=== PATIENT | female | born 1995 | race Hispanic/Latino ===

== ENCOUNTER → 2020-04-30 15:22 | Outpatient (CLI) | payer OTHER, SELFPAY ==
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
== END ==
PROVIDERS: PCP Physician Assistant; Visit Provider Physician Assistant
DX: M25.531 Pain in right wrist (principal); M54.2 Cervicalgia; M53.82 Other specified dorsopathies, cervical region
CPT/HCPCS: 72050; 73090; 73130

== ENCOUNTER → 2021-03-12 15:31 | Outpatient (CLI) | payer OTHER, SELFPAY ==
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
== END ==
PROVIDERS: PCP Physician Assistant; Visit Provider Nurse Practitioner
DX: T83.32XA Displacement of intrauterine contraceptive device, initial encounter (principal)
CPT/HCPCS: 76856

== ENCOUNTER 2021-04-17 23:54 | Emergency (ER) | payer OTHER, SELFPAY ==
--- NOTE | ~2021-04-17 | XR_ITS ---
EXAMINATION: XR chest 1V portable DATE: 04/18/2021 00:29 INDICATION: Cough. TECHNIQUE: A single frontal view of the chest was obtained. COMPARISON: Chest 2 views 11/11/2012, CT abdomen and pelvis 05/06/2017 FINDINGS: The chest demonstrates clear lungs without pneumonia, pleural effusion, or pneumothorax. Th e heart size is normal. IMPRESSION: 1. No acute cardiopulmonary disease. Reviewed, dictated and finalized at location A.
[2021-04-17 23:59] VITALS: BP 133/86; PULSE 106; RESP 18; TEMP 36.8; O2SAT 100
--- NOTE | 2021-04-18 00:46 | ECG_ITS ---
Measurements Intervals [place] Rate: 99 P: 22 IA: 146 QRS: 38 QRSD: 100 T: 17 QT: 341 QTc: 439 Interpretive Statements SINUS RHYTHM NORMAL ECG Electronically Signed On 04-18-2021 6:48:36 CDT by Manjit Casillas D.O.
[2021-04-18 01:01] LABS: Basophils Percent Auto 0.3 % (0.2-1.2); Eosinophils Absolute Auto 0.1 K/mm3 (0-0.3); Eosinophils Percent Auto 1.7 % (0-4.4); Hematocrit 42.1 % (37.0-47.0); Hemoglobin 13.8 g/dL (12.0-15.0); Immature Granulocyte Absolute 0.01 K/mm3 (0.00-0.031); Immature Granulocyte Percent A 0.3 % (0-0.5); Lymphocytes Absolute Auto 0.89 K/mm3 (0.9-3.2); Lymphocytes Percent Auto 30.5 % (18.3-44.2); Mean Corpuscular HGB Conc 32.8 g/dl (32-36); Mean Corpuscular Hemoglobin 28.8 pg (26-34); Mean Corpuscular Volume 87.9 fl (80-100); Mean Platelet Volume 10.5 fl (7.4-10.4); Monocytes Absolute Auto 0.2 K/mm3 (0.1-0.6); Monocytes Percent Auto 6.8 % (2.6-8.5); Neutrophils Absolute Auto 1.8 K/mm3 (1.3-6.7); Neutrophils Percent Auto 60.4 % (45.5-73.1); Platelet Count Result 160 k/mm3 (150-375); Red Blood Count 4.79 M/mm3 (4.2-5.4); Red Cell Distribution Width 13.2 % (11.5-14.5); White Blood Count 2.9 K/mm3 (4.5-10.0)
[2021-04-18 01:11] LABS: Alanine Aminotransferase 36 U/L (4-35); Albumin Level 3.8 g/dL (3.5-5.1); Alkaline Phosphatase 54 U/L (38-126); Anion Gap 5 mmol/L (8-16); Aspartate Amino Transferase 29 U/L (14-36); Bilirubin,Total 0.3 mg/dL (0.2-1.3); Blood Urea Nitrogen 7 mg/dL (7-17); Calcium 8.7 mg/dL (8.4-10.2); Carbon Dioxide 29 mmol/L (22-30); Chloride 103 mmol/L (98-107); Estimated CRCL calculation 173 ml/min; Estimated Glomerular Filt Rate > 60; Glucose 205 mg/dL (65-105); Potassium 4.3 mmol/L (3.4-5.0); Sodium 137 mmol/L (137-145)
[2021-04-18 01:22] LABS: Troponin I < 0.012 ng/mL (0.000-0.034)
--- NOTE | 2021-04-18 01:28 | ED.GENADULT ---
HPI - General Adult General Chief complaint: Unspecified Stated complaint: Cough, REINOSO, no sense of smell/taste after covid vac Time Seen by Provider: 04/18/21 00:00 Source: RN notes reviewed History of Present Illness HPI narrative: Patient presents emergency department from home for upper respiratory infection symptoms. Patient states that on 04/15/2021 she received her first Pfizer Covid vaccination she states that the next day she developed a cough that is nonproductive she notes that cough is now resolved she states that she has had a low-grade fever up to 100 for the past 2 days as well she states she has some mild rhinorrhea and today lost her sense of smell and taste patient was concerned about possible Covid and came to the emergency department for further evaluation she she has taken Tylenol today but denies any ibuprofen states she has a mild pulling in her right upper chest at this time she denies any current shortness of breath or cough denies any abdominal pain nausea vomiting Related Data Home Medications Medication Instructions Recorded Confirmed metformin mg 04/18/21 Allergies Allergy/AdvReac Type Severity Reaction Status Date / Time No Known Allergies Allergy Unknown Verified 04/18/21 00:39 Review of Systems Review of Systems: Narrative: Gen.: Reports low-grade fever denies chills Eyes: Denies eye pain or visual change ENT: Reports congestion and loss of taste and smell Respiratory: Denies shortness of breath reports cough CV: Reports right upper chest pulling GI: Denies abdominal pain nausea, emesis or diarrhea Musculoskeletal: Denies back pain or muscle pain Neuro: Denies numbness, tingling, weakness or focal weakness Skin: Denies rash Except as documented, all other systems reviewed and negative [facility] Past Medical History Medical History (Updated 04/18/21 @ 01:34 by Francisco Bowens DO) Diabetes mellitus Family History Family History (Updated 09/23/16 @ 15:00 by DOCTOR UNKNOWN) Other Diabetes mellitus Hypertension Social History Social History Smoking status: Never smoker Alcohol intake: never Exam Narrative: Exam Narrative: APPEARANCE: No acute distress, nontoxic, resting in bed EYES: EOMI HEENT: Normocephalic, atraumatic, OMM RESPIRATORY: No respiratory distress Clear to auscultation bilaterally with no rhonchi wheezing or rales. CARDIOVASCULAR: Regular rate and rhythm without murmurs rubs or gallops. Chest: Tender palpation of the right anterior superior chest wall no overlying swelling or ecchymosis pain with increased inspiration ABDOMINAL: Soft, nontender, nondistended, no rebound or guarding MUSCULOSKELETAl: Moves all extremities. No clubbing, cyanosis or edema. NEURO: Awake and alert. Following commands, speech normal, no focal deficits SKIN:: Warm, dry. No rashes lesions or abrasions PSYCHIATRIC: Normal affect/mood, Course Course Emergency Course: Discussed with patient will test for Covid at this time discussed self-isolation Discussed with patient results of workup and diagnosis. Discussed need for follow-up with primary care, proper use of medication, and reasons to return to the emergency department. Patient understands and agrees to current treatment plan Vital Signs Vital signs: Vital Signs Temperature 98.3 F 04/17/21 23:59 Pulse Rate 106 H 04/17/21 23:59 Respiratory Rate 18 04/17/21 23:59 Blood Pressure 133/86 04/17/21 23:59 Pulse Oximetry 100 04/17/21 23:59 Temperature 98.3 F 04/17/21 23:59 Pulse Rate 106 H 04/17/21 23:59 Respiratory Rate 18 04/17/21 23:59 Blood Pressure 133/86 04/17/21 23:59 Pulse Oximetry 100 04/17/21 23:59 Medical Decision Making MDM Narrative Medical decision making narrative: Patient's EKGs and labs are without significant high risk changes. Cardiac risk factors reviewed. Patient is felt likely low risk for ACS and reasonable for further ri
[2021-04-18] MEDS: IBUPROFEN 600 MG TABLET PO (02:10)
[2021-04-18 02:11] VITALS: BP 131/81; PULSE 95; RESP 16; O2SAT 97
[2021-04-18 21:20] LABS: SARS-CoV-2 RNA PCR Positive
== END 2021-04-18 02:12 | disposition home or self-care (01) ==
PROVIDERS: Emergency Provider Emergency Medicine; PCP Physician Assistant
DX: U07.1 COVID-19 (principal); R07.89 Other chest pain; E11.9 Type 2 diabetes mellitus without complications; Z79.84 Long term (current) use of oral hypoglycemic drugs
CPT/HCPCS: 36415; 71045; 80053; 84484; 85025; 93005; 99284; A9270; C9803; U0003; U0005

== ENCOUNTER 2021-11-17 08:00 | Outpatient (RCR) | payer OTHER, SELFPAY ==
[2021-10-13 08:06] VITALS: BMI 40.5
[2021-10-13 08:24] VITALS: BMI 40.5
[2021-11-17 08:05] VITALS: BMI 40.4
[2021-11-17 08:08] VITALS: BMI 40.4
== END 2022-01-04 09:22 | disposition home or self-care (01) ==
LOC: ANHDMC 08:00
PROVIDERS: PCP Physician Assistant; Visit Provider Internal Medicine Endocrinology, Diabetes & Metabolism
DX: E11.65 Type 2 diabetes mellitus with hyperglycemia (principal); Z71.3 Dietary counseling and surveillance; Z71.89 Other specified counseling
CPT/HCPCS: 97802; 97803; G0108

== ENCOUNTER 2021-12-22 12:01 | Emergency (ER) | payer OTHER, SELFPAY ==
[2021-12-22] VITALS (21 sets, daily range): BP systolic 111–134; BP diastolic 56–92; PULSE 65–91; RESP 13–23; TEMP 36.4; O2SAT 98–100
[2021-12-22 12:11] LABS: Glucose Point of Care 380 mg/dl (65-105)
--- NOTE | 2021-12-22 12:22 | PC.NURSE ---
EDP at bedside
[2021-12-22 12:27] LABS: Basophils Absolute Auto 0.1 K/mm3 (0.0-0.1); Basophils Percent Auto 0.6 % (0.2-1.2); Eosinophils Absolute Auto 0.2 K/mm3 (0-0.3); Eosinophils Percent Auto 2.1 % (0-4.4); Hematocrit 43.5 % (37.0-47.0); Hemoglobin 14.9 g/dL (12.0-15.0); Immature Granulocyte Absolute 0.05 K/mm3 (0.00-0.031); Immature Granulocyte Percent A 0.6 % (0-0.5); Lymphocytes Absolute Auto 2.25 K/mm3 (0.9-3.2); Lymphocytes Percent Auto 27.4 % (18.3-44.2); Mean Corpuscular HGB Conc 34.3 g/dl (32-36); Mean Corpuscular Hemoglobin 29.9 pg (26-34); Mean Corpuscular Volume 87.3 fl (80-100); Mean Platelet Volume 11.5 fl (7.4-10.4); Monocytes Absolute Auto 0.4 K/mm3 (0.1-0.6); Monocytes Percent Auto 4.6 % (2.6-8.5); Neutrophils Absolute Auto 5.3 K/mm3 (1.3-6.7); Neutrophils Percent Auto 64.7 % (45.5-73.1); Platelet Count Result 196 k/mm3 (150-375); Red Blood Count 4.98 M/mm3 (4.2-5.4); Red Cell Distribution Width 12.5 % (11.5-14.5); White Blood Count 8.2 K/mm3 (4.5-10.0)
[2021-12-22 12:35] LABS: Alanine Aminotransferase 88 U/L (4-35); Albumin Level 4.3 g/dL (3.5-5.1); Alkaline Phosphatase 71 U/L (38-126); Anion Gap 7 mmol/L (8-16); Aspartate Amino Transferase 66 U/L (14-36); Bilirubin,Total 0.6 mg/dL (0.2-1.3); Blood Urea Nitrogen 11 mg/dL (7-17); Carbon Dioxide 25 mmol/L (22-30); Chloride 99 mmol/L (98-107); Estimated CRCL calculation 160 ml/min; Estimated Glomerular Filt Rate > 60; Glucose 359 mg/dL (65-110); Potassium 4.2 mmol/L (3.4-5.0); Sodium 131 mmol/L (137-145)
[2021-12-22 12:36] LABS: Add Urine Microscopic? YES; Appearance Urine Clear (Clear); Bilirubin Urine Negative (Negative); Blood Urine Negative (Negative); Color Urine Straw (Yellow); Glucose Urine UA 3+ mg/dL (Negative); Ketones Urine Trace mg/dL (Negative); Leukocyte Esterase Ur Negative LEU/UL (Negative); Nitrate Urine Negative (Negative); Protein Urine Negative (Negative); RBC Urine 0-2 /hpf (0-2); Specific Grav Ur 1.024 (1.001-1.035); Squamous Epithelial Cell Urine Rare /hpf (Few); Urobilinogen Urine Negative mg/dL (<2.0); WBC Urine 0-3 /hpf
[2021-12-22] MEDS: SODIUM CHLORIDE 0.9% IV 1,000 ML 999 ML IV CONT (12:37)
[2021-12-22 13:13] LABS: Beta-Hydroxybutyrate/Acetoacetate 0.17 mmol/L (0.02-0.27)
--- NOTE | 2021-12-22 14:30 | ED.GENADULT ---
HPI - General Adult General Chief complaint: Recheck/Abnormal Lab/Rx Stated complaint: Hyperglycemia Time Seen by Provider: 12/22/21 12:18 Source: patient Mode of arrival: ambulatory Limitations: no limitations History of Present Illness HPI narrative: Pt is a26 y/o female, PMHx of NIDDM, presents to ED with increased FSBS at home for the past couple of days, today reading 500. She recently stopped Trulicity secondary to negative side effects and has continued her Metformin 500 mg at her regular dose without titration. She has no associated symptoms at this time and she denies recent illness or chance of Onset (ago): day(s) (3) Relieving factors: none Exacerbating factors: none Associated symptoms: denies other symptoms Treatments prior to arrival: none Related Data Home Medications Medication Instructions Recorded Confirmed albuterol sulfate INHALATION 12/22/21 ergocalciferol (vitamin D2) 1,250 mcg WEEKLY 12/22/21 12/22/21 metformin 500 mg PO DAILY 12/22/21 12/22/21 spironolactone 100 mg PO DAILY 12/22/21 Allergies Allergy/AdvReac Type Severity Reaction Status Date / Time No Known Allergies Allergy Unknown Verified 04/18/21 00:39 Review of Systems Review of Systems: All systems reviewed & are unremarkable except as noted in HPI and below PMFSH Past Medical History Medical History Diabetes mellitus Family History Family History (Updated 09/23/16 @ 15:00 by DOCTOR UNKNOWN) Other Diabetes mellitus Hypertension Social History Social History Smoking status: Never smoker Alcohol intake: never Spiritual care concerns: No Exam Const: General: no acute distress and alert Orientation/consciousness: patient oriented x3 HENMT: Head: normal to inspection Eyes: Conjunctivae: conjunctivae normal Pupils: Equal, round and reactive pupils present EOM: EOMs intact bilaterally Neck: Neck: normal visual inspection Chest: Chest palpation & inspection: normal inspection of the chest Resp: Effort & Inspection: normal respiratory effort Auscultation: clear to auscultation bilaterally Cardio: Rate: regular rate Rhythm: regular rhythm GI: GI Palp: Yes Soft to palpation Percussion: Yes normal to percussion Auscultation: normal bowel sounds : General: Yes no CVA tenderness Back/Spine/Pelvis: Back: no CVA tenderness Skin: General skin exam: normal color Rashes: no rashes Neuro: General: patient oriented x3, moves all extremities and no meningeal signs Extrem: General: normal to inspection Psych: Mental Status: mental status grossly normal Affect: normal affect Attitude: cooperative Course Course Emergency Course: Pt is not ketotic, she has completed IVF and her FSBS is improving. Plan to discharge home, increasing her metformin to 1000 mg daily until she FU with her heater furnace and further medication adjustments are made, calling today for an appointment as soon as possible. Pt is agreeable with plan. Vital Signs Vital signs: Vital Signs Temperature 36.4 C 12/22/21 12:06 Pulse Rate 76 12/22/21 12:06 Respiratory Rate 18 12/22/21 12:06 Blood Pressure 134/92 H 12/22/21 12:06 Pulse Oximetry 99 12/22/21 12:06 Temperature 36.4 C 12/22/21 12:06 Pulse Rate 87 12/22/21 14:14 Respiratory Rate 20 12/22/21 14:14 Blood Pressure 111/56 L 12/22/21 13:31 Pulse Oximetry 100 12/22/21 14:14 Medical Decision Making MDM Narrative Medical decision making narrative: hyperglycemia, DM Differential Diagnosis Differential Diagnosis: hyperglycemia, DM Vital Signs Vital Signs: Vital Signs Temperature 36.4 C 12/22/21 12:06 Pulse Rate 76 12/22/21 12:06 Respiratory Rate 18 12/22/21 12:06 Blood Pressure 134/92 H 12/22/21 12:06 Pulse Oximetry 99 12/22/21 12:06 Temperature 36.4 C 12/22/21 12:06 Pulse Rate 87 12/22
--- NOTE | 2021-12-22 14:52 | PC.NURSE ---
Bedside glucose rechecked with result of 233. ERP made aware.
[2021-12-22 14:53] LABS: Glucose Point of Care 233 mg/dl (65-105)
== END 2021-12-22 15:28 | disposition home or self-care (01) ==
PROVIDERS: Emergency Medicine; Emergency Provider Nurse Practitioner Family; PCP Physician Assistant
DX: E11.65 Type 2 diabetes mellitus with hyperglycemia (principal); Z79.84 Long term (current) use of oral hypoglycemic drugs
CPT/HCPCS: 36415; 80053; 81001; 81025; 82010; 82948; 85025; 96360; 99283; J7030

== ENCOUNTER 2022-01-26 06:14 | Outpatient (RCR) | payer OTHER, SELFPAY | END 2022-04-13 10:00 | disposition home or self-care (01) | LOC: ANHDMC 06:14 | PROVIDERS: PCP Physician Assistant; Visit Provider Internal Medicine Endocrinology, Diabetes & Metabolism | DX: E11.65 Type 2 diabetes mellitus with hyperglycemia (principal) | CPT/HCPCS: 99199 ==

== ENCOUNTER 2022-12-01 08:52 | Emergency (ER) | payer OTHER, SELFPAY ==
[2022-12-01 08:58] VITALS: BP 145/92; PULSE 91; RESP 16; TEMP 35.9; O2SAT 99
--- NOTE | 2022-12-01 08:58 | ED.URI ---
HPI - URI/Sore Throat General Chief Complaint: Upper Respiratory Infection Stated Complaint: Cough/Eye Problem Source: patient and RN notes reviewed History of Present Illness HPI Narrative: 27 yo F presents to urgent care with multiple medical complaints. Pt reports her symptoms starting last involving congestion and postnasal drip. Pt then started to develop a sore throat which has improved and is resolved by hot foods. Pt reports intermittent nausea, left ear fullness, intermittent lightheadedness, and cough. Pt denies any vomiting, diarrhea, chest pain, or SOB. Pt has been taking cough drops, Dayquil, and an allergy pill. Related Data Home Medications Medication Instructions Recorded Confirmed metformin 500 mg tablet,extended 500 mg PO DAILY 12/22/21 12/01/22 release 24 hr spironolactone 100 mg tablet 100 mg PO DAILY 12/22/21 12/01/22 Allergies Allergy/AdvReac Type Severity Reaction Status Date / Time No Known Allergies Allergy Unknown Verified 12/01/22 09:10 Review of Systems Review of Systems: CONSTITUTIONAL: Denies fever, chills EYES: REports bilateral eye discharge this morning ENT: Reports sore throat and left ear fullness CARDIOVASCULAR: Denies chest pain, palpitations, or edema. RESPIRATORY: Denies cough or dyspnea. GASTROINTESTINAL: Denies abdominal pain, vomiting, or diarrhea. Admits to nausea. GENITOURINARY: Denies dysuria or hematuria. SKIN: Denies rash or itching. MUSCULOSKELETAL: Denies back pain, joint pain, or myalgia. NEUROLOGIC: Reports intermittent lightheadedness. [facility] Past Medical History Medical History Diabetes mellitus Family History Family History (Updated 09/23/16 @ 15:00 by DOCTOR UNKNOWN) Other Diabetes mellitus Hypertension Social History Social History Smoking status: Never smoker Alcohol intake: never Spiritual care concerns: No Comments At the time of my signature, I reviewed and agree with the nursing past medical, surgical, social, and family history. There is no relevant family history pertinent to the patient complaint. Exam Narrative: GENERAL: This is a well-nourished, well-developed patient, in no apparent distress. HEAD: normocephalic, atraumatic. EYES: PERRL. Sclera clear/white. Vision is grossly intact. Bilateral lower conjunctivae injected. No significant discharge noted. EARS: External ears normal, auditory canals clear and without drainage, TMs normal without perforation. Hearing grossly intact. NOSE: congested and rhinorrhea. THROAT: Mucous membranes moist, posterior pharynx clear. NECK: Mild lymphadenopathy CARDIOVASCULAR: Regular rate RESPIRATORY: Clear to auscultation. Breath sounds equal bilaterally. No wheezes, rales, or rhonchi. SKIN: warm, intact with no suspicious lesions or rash, good texture and turgor. NEURO: awake, alert, and oriented to person, place and time. There were no obvious focal neurologic abnormalities. Course Course Level of Care: Express Care Visit Vital Signs Vital signs: Vital Signs Temperature 96.6 F L 12/01/22 08:58 Pulse Rate 91 12/01/22 08:58 Respiratory Rate 16 12/01/22 08:58 Blood Pressure 145/92 H 12/01/22 08:58 Pulse Oximetry 99 12/01/22 08:58 Oxygen Delivery Room Air 12/01/22 08:58 Temperature 96.6 F L 12/01/22 08:58 Pulse Rate 91 12/01/22 08:58 Respiratory Rate 16 12/01/22 08:58 Blood Pressure 145/92 H 12/01/22 08:58 Pulse Oximetry 99 12/01/22 08:58 Oxygen Delivery Room Air 12/01/22 08:58 Reviewed. MDM - URI/Sore Throat MDM Narrative Medical decision making narrative: Viral illness may last between 7-21 days; antibiotics do not cure viral illness and are NOT recommended at this time. Recommend antihistamine such as Benadryl at night time and Zyrtec or [place] during the day Cough syrup may cause drowsiness; avoid driving
== END 2022-12-01 09:31 | disposition home or self-care (01) ==
PROVIDERS: Emergency Provider Nurse Practitioner Family; PCP Physician Assistant
DX: B34.9 Viral infection, unspecified (principal); R42 Dizziness and giddiness; H10.33 Unspecified acute conjunctivitis, bilateral; E11.9 Type 2 diabetes mellitus without complications; Z79.84 Long term (current) use of oral hypoglycemic drugs
CPT/HCPCS: 99213; G0463

== ENCOUNTER 2023-08-08 09:30 | Emergency (ER) | payer OTHER, SELFPAY ==
[2023-08-08 09:38] VITALS: BP 131/79; PULSE 83; RESP 18; TEMP 35.7; O2SAT 99
[2023-08-08 09:44] LABS: Glucose Point of Care 408 mg/dl (65-105)
[2023-08-08 10:27] VITALS: BP 125/99; PULSE 87; RESP 18; TEMP 36.6; O2SAT 100
[2023-08-08] MEDS: SODIUM CHLORIDE 0.9% IV 2,000 ML 999 ML IV CONT (11:05)
[2023-08-08] MEDS: ONDANSETRON INJ 4 MG/2 ML VIAL IV PUSH (11:06)
[2023-08-08 11:08] VITALS: BP 139/95; PULSE 73; RESP 20; O2SAT 97
[2023-08-08 11:08] LABS: Basophils Absolute Auto 0.1 K/mm3 (0.0-0.1); Basophils Percent Auto 0.8 % (0.2-1.2); Eosinophils Absolute Auto 0.1 K/mm3 (0-0.3); Eosinophils Percent Auto 2.2 % (0-4.4); Hematocrit 44.8 % (37.0-47.0); Hemoglobin 15.3 g/dL (12.0-15.0); Immature Granulocyte Absolute 0.03 K/mm3 (0.00-0.031); Immature Granulocyte Percent A 0.5 % (0-0.5); Lymphocytes Absolute Auto 2.56 K/mm3 (0.9-3.2); Lymphocytes Percent Auto 40.6 % (18.3-44.2); Mean Corpuscular HGB Conc 34.2 g/dl (32-36); Mean Corpuscular Hemoglobin 30.3 pg (26-34); Mean Corpuscular Volume 88.7 fl (80-100); Mean Platelet Volume 11.9 fl (7.4-10.4); Monocytes Absolute Auto 0.3 K/mm3 (0.1-0.6); Monocytes Percent Auto 4.4 % (2.6-8.5); Neutrophils Absolute Auto 3.2 K/mm3 (1.3-6.7); Neutrophils Percent Auto 51.5 % (45.5-73.1); Platelet Count Result 196 k/mm3 (150-375); Red Blood Count 5.05 M/mm3 (4.2-5.4); Red Cell Distribution Width 12.4 % (11.5-14.5); White Blood Count 6.3 K/mm3 (4.5-10.0)
[2023-08-08 11:34] LABS: Alanine Aminotransferase 62 U/L (6-35); Albumin Level 4.1 g/dL (3.5-5.1); Alkaline Phosphatase 62 U/L (38-126); Anion Gap 6 mmol/L (8-16); Aspartate Amino Transferase 36 U/L (14-36); Bilirubin,Total 0.6 mg/dL (0.2-1.3); Blood Urea Nitrogen 10 mg/dL (7-17); Calcium 9.2 mg/dL (8.4-10.2); Carbon Dioxide 28 mmol/L (22-30); Chloride 99 mmol/L (98-107); Estimated CRCL calculation 159 ml/min; Estimated Glomerular Filt Rate > 60; Glucose 369 mg/dL (65-110); Potassium 4.3 mmol/L (3.4-5.0); Sodium 133 mmol/L (137-145)
[2023-08-08 11:38] LABS: Beta-Hydroxybutyrate/Acetoacetate 0.11 mmol/L (0.02-0.27)
--- NOTE | 2023-08-08 12:43 | ED.RECABL ---
HPI - Recheck/Abnormal Lab/Rx General Chief Complaint: Recheck/Abnormal Lab/Rx Stated Complaint: hyperglycemic Time Seen by Provider: 08/08/23 10:08 History of Present Illness HPI narrative: This is a 28F with diabetes currently managed with Metformin, who presents to the ED with elevated blood sugar. The patient states her blood sugar typically runs in the 200s. Yesterday it was elevated to the 300s. Today it reached the mid 400s. She complains of some abdominal discomfort and nausea, though denies vomiting, fevers, dysuria, chest pain or loss of consciousness. Related Data Home Medications Medication Instructions Recorded Confirmed metformin 500 mg tablet,extended 500 mg PO DAILY 12/22/21 12/01/22 release 24 hr spironolactone 100 mg tablet 100 mg PO DAILY 12/22/21 12/01/22 Allergies Allergy/AdvReac Type Severity Reaction Status Date / Time No Known Allergies Allergy Unknown Verified 08/08/23 10:04 Review of Systems Review of Systems: CONSTITUTIONAL: Denies fever, chills, or sweats. CARDIOVASCULAR: Denies chest pain, palpitations, or edema. RESPIRATORY: Denies cough or dyspnea. GASTROINTESTINAL: Mild abdominal discomfort and nausea, Denies vomiting, or diarrhea. GENITOURINARY: Denies dysuria or hematuria. SKIN: Denies rash or itching. MUSCULOSKELETAL: Denies back pain, joint pain, or myalgia. NEUROLOGIC: Denies headache, numbness, dizziness, or weakness. PSYCHIATRIC: Denies anxiety or depression. PMFSH Past Medical History Medical History (Updated 08/09/23 @ 11:55 by Horacio Michelle MD) Diabetes mellitus Symptomatic cholelithiasis Family History Family History Other Diabetes mellitus Hypertension Social History Social History (Updated 08/09/23 @ 11:51 by Horacio Michelle MD) Smoking status: Never smoker Alcohol intake: never Substance use: never Spiritual care concerns: No Exam Narrative: GENERAL: Well-developed, well-nourished, and in no acute distress. HEAD: Normocephalic, atraumatic. EYES: PERRLA and EOMI. ENT: Nares clear, no rhinorrhea or epistaxis. Mucous membranes moist. Oropharynx without tonsillar hypertrophy exudate or other lesions. CHEST: Clear to auscultation. No respiratory distress. No wheezes rales or rhonchi HEART: Regular rate and rhythm. No murmur heard. Normal peripheral pulses. ABDOMEN: Soft, mild generalized tenderness to palpation without rebound or guarding, nondistended, normal active bowel sounds. EXTREMITIES: Normal range of motion. No edema. SKIN: Warm, dry, no rash. NEURO: Alert and oriented x3. Moving all 4 limbs purposefully. PSYCH: Normal mood and affect. Course Course Emergency Course: 12:44 - Repeat glucose after IV fluids improved to 247. Chemistries not concerning for DKA. Will discharge. I advised the patient to follow-up with her primary care doctor. Discussed return and emergency precautions including signs/symptoms of DKA. The patient voiced understanding and is comfortable with the plan. All questions answered to her satisfaction Vital Signs Vital signs: Vital Signs Temperature 96.2 F L 08/08/23 09:38 Pulse Rate 83 08/08/23 09:38 Respiratory Rate 18 08/08/23 09:38 Blood Pressure 131/79 08/08/23 09:38 Pulse Oximetry 99 08/08/23 09:38 Oxygen Delivery Room Air 08/08/23 09:38 Temperature 97.8 F 08/08/23 10:27 Pulse Rate 76 08/08/23 12:52 Respiratory Rate 20 08/08/23 12:52 Blood Pressure 112/73 08/08/23 12:52 Pulse Oximetry 99 08/08/23 12:52 Oxygen Delivery Room Air 08/08/23 09:38 MDM - Recheck/Abnormal Lab/Rx MDM Narrative Medical decision making narrative: Plan: labs, test, IV fluids, antiemetics, reassess Differential Diagnosis Differential diagnosis: Likely other (DKA, hyperglycemia, metabolic abnormality, other) Lab Data 08/08/23 11:03 08/08/23 11:03 Labs: Lab
[2023-08-08 12:44] LABS: Glucose Point of Care 247 mg/dl (65-105)
[2023-08-08 12:52] VITALS: BP 112/73; PULSE 76; RESP 20; O2SAT 99
== END 2023-08-08 12:55 | disposition home or self-care (01) ==
PROVIDERS: Emergency Provider Preventive Medicine Aerospace Medicine; PCP Physician Assistant
DX: E11.65 Type 2 diabetes mellitus with hyperglycemia (principal); Z79.84 Long term (current) use of oral hypoglycemic drugs
CPT/HCPCS: 36415; 80053; 81025; 82010; 82948; 85025; 96361; 96374; 99284; J2405; J7030

== ENCOUNTER 2023-10-20 09:30 | Emergency (ER) | payer OTHER, SELFPAY ==
--- NOTE | ~2023-10-20 | US_ITS ---
US venous doppler [facility] DATE: 10/20/2023 11:30 INDICATION: Bilateral calf pain, tightness, spasms TECHNIQUE: Real-time and color flow imaging and Doppler analysis of the veins of the lower extremitie s COMPARISON: None FINDINGS: The great saphenous veins are patent bilaterally. There is spontaneous and phasic flow and normal augmentation and color flow signal and normal compression of the deep veins of both lower extr emities. IMPRESSION: No evidence of deep venous thrombosis of the lower extremities Reviewed, dictated and finalized at Location [facility]. Reviewed, dictated and finalized at location L. [employer]
[2023-10-20 09:34] VITALS: BP 133/89; PULSE 82; RESP 16; TEMP 36.9; O2SAT 96
[2023-10-20 10:05] LABS: Appearance Urine Clear (Clear); Bilirubin Urine Negative (Negative); Blood Urine Negative (Negative); Color Urine Yellow (Yellow); Glucose Urine UA 3+ mg/dL (Negative); Ketones Urine 1+ mg/dL (Negative); Leukocyte Esterase Ur Negative LEU/UL (Negative); Nitrate Urine Negative (Negative); Protein Urine Negative (Negative); pH Urine 5.5 (5.0-9.0)
[2023-10-20 10:09] LABS: Add Urine Microscopic? NO; Specific Grav Ur 1.044 (1.001-1.035)
[2023-10-20 10:12] LABS: Glucose Point of Care 277 mg/dl (65-105)
[2023-10-20 10:14] LABS: Alanine Aminotransferase 55 U/L (6-35); Albumin Level 4.4 g/dL (3.5-5.1); Alkaline Phosphatase 69 U/L (38-126); Anion Gap 10 mmol/L (8-16); Aspartate Amino Transferase 38 U/L (14-36); Bilirubin,Total 0.9 mg/dL (0.2-1.3); Blood Urea Nitrogen 13 mg/dL (7-17); Calcium 9.5 mg/dL (8.4-10.2); Carbon Dioxide 25 mmol/L (22-30); Chloride 99 mmol/L (98-107); Estimated CRCL calculation 131 ml/min; Estimated Glomerular Filt Rate > 60; Glucose 299 mg/dL (65-110); Magnesium 1.8 mg/dL (1.6-2.3); Phosphorus 4.1 mg/dL (2.5-4.5); Potassium 4.2 mmol/L (3.4-5.0); Sodium 134 mmol/L (137-145)
[2023-10-20 10:22] LABS: Hemoglobin A1C 10.7 % (<5.7)
--- NOTE | 2023-10-20 10:42 | ED.RECABL ---
HPI - Recheck/Abnormal Lab/Rx General Chief Complaint: Recheck/Abnormal Lab/Rx Stated Complaint: ELEVATED BLOOD SUGAR Time Seen by Provider: 10/20/23 09:38 Source: patient Mode of arrival: ambulatory Limitations: no limitations History of Present Illness HPI narrative: Patient is a 28-year-old female who presents the ED with report of lower extremity cramping and elevated blood sugars. Patient reports over last couple of days, she has had pain, cramping, spasms in her lower legs. They feel very tight. She denies swelling, numbness. She has tried using a heating pad without improvement of pain. She notes she has worked her physically demanding job for the last 9 days in a row. Patient also reports having elevated blood sugars over the last couple of days. Her blood sugars typically run in the upper 100s, low 200s. Yesterday, blood sugar was greater than 450. Persistently elevated into the 300s today. Patient has been eating and drinking normally. Denies recent illness, cough, cold symptoms, nausea, vomiting. She takes metformin 1000 mg b.i.d. in addition to Trulicity Q-weekly. States her last A1c was > 10%. Related Data Home Medications Medication Instructions Recorded Confirmed metformin 500 mg tablet,extended 500 mg PO DAILY 12/22/21 12/01/22 release 24 hr spironolactone 100 mg tablet 100 mg PO DAILY 12/22/21 12/01/22 Allergies Allergy/AdvReac Type Severity Reaction Status Date / Time No Known Allergies Allergy Unknown Verified 10/20/23 09:52 Review of Systems Review of Systems: CONSTITUTIONAL: Denies fever, chills, or sweats. CARDIOVASCULAR: Denies chest pain RESPIRATORY: Denies dyspnea. GASTROINTESTINAL: Denies abdominal pain, nausea, vomiting. GENITOURINARY: Denies dysuria or hematuria. MUSCULOSKELETAL: See HPI. NEUROLOGIC: Denies headache, dizziness, numbness, or weakness. All systems reviewed & are unremarkable except as noted in HPI and below PMFSH Past Medical History Medical History Diabetes mellitus Symptomatic cholelithiasis Family History Family History Other Diabetes mellitus Hypertension Social History Social History (Reviewed 10/20/23 @ 10:50 by TD Ortiz Smoking status: Never smoker Alcohol intake: never Substance use: never Spiritual care concerns: No Exam Narrative: GENERAL: Well appearing, obese with BMI of 38.8, non-toxic, in no acute distress. HEAD: Normocephalic, atraumatic. RESPIRATORY: Airway patent, respirations nonlabored. Clear to auscultation bilaterally, no rales, rhonchi, wheezing. CARDIOVASCULAR: Regular rate and rhythm without murmurs, rubs, or gallops. Pedal pulses 2+. MUSCULOSKELETAL: Moves all extremities. No gross deformities. Diffuse tenderness throughout bilateral lower extremities/calf regions. No significant swelling appreciated. Sensation intact. No erythema or warmth. No wounds/rashes. SKIN: Warm, dry, normal color. NEURO: A&O X3. Speech clear. Cranial nerves II-XII grossly intact. Steady gait. No ataxic movements. PSYCHIATRIC: Appropriate mood and affect. Normal interaction. Course Vital Signs Vital signs: Vital Signs Temperature 98.4 F 10/20/23 09:34 Pulse Rate 82 10/20/23 09:34 Respiratory Rate 16 10/20/23 09:34 Blood Pressure 133/89 10/20/23 09:34 Pulse Oximetry 96 10/20/23 09:34 Oxygen Delivery Room Air 10/20/23 09:34 Temperature 98.4 F 10/20/23 09:34 Pulse Rate 77 10/20/23 13:25 Respiratory Rate 16 10/20/23 13:25 Blood Pressure 118/68 10/20/23 13:25 Pulse Oximetry 95 10/20/23 13:25 Oxygen Delivery Room Air 10/20/23 09:34 MDM - Recheck/Abnormal Lab/Rx MDM Narrative Medical decision making narrative: Patient presents to ED with lower extremity cramping, elevated blood sugars, history diabetes, on metformin and Trulicity.
[2023-10-20] MEDS: SODIUM CHLORIDE 0.9% IV 1,000 ML 999 ML IV CONT ×2 (10:51)
[2023-10-20] MEDS: CYCLOBENZAPRINE HCL 5 MG TABLET PO (10:52)
[2023-10-20] MEDS: KETOROLAC 30 MG/ML VIAL (*BKC) IV PUSH (10:52)
[2023-10-20] MEDS: ACETAMINOPHEN 500 MG TABLET 1000 MG PO (10:52)
[2023-10-20 11:27] LABS: Beta-Hydroxybutyrate/Acetoacetate 0.35 mmol/L (0.02-0.27)
[2023-10-20 12:14] LABS: Basophils Absolute Auto 0.1 K/mm3 (0.0-0.1); Eosinophils Absolute Auto 0.2 K/mm3 (0-0.3); Eosinophils Percent Auto 2.3 % (0-4.4); Hematocrit 45.8 % (37.0-47.0); Hemoglobin 15.6 g/dL (12.0-15.0); Immature Granulocyte Absolute 0.04 K/mm3 (0.00-0.031); Immature Granulocyte Percent A 0.5 % (0-0.5); Lymphocytes Absolute Auto 3.01 K/mm3 (0.9-3.2); Lymphocytes Percent Auto 41.1 % (18.3-44.2); Mean Corpuscular HGB Conc 34.1 g/dl (32-36); Mean Corpuscular Hemoglobin 29.4 pg (26-34); Mean Corpuscular Volume 86.3 fl (80-100); Mean Platelet Volume 12.1 fl (7.4-10.4); Monocytes Absolute Auto 0.4 K/mm3 (0.1-0.6); Monocytes Percent Auto 5.6 % (2.6-8.5); Neutrophils Absolute Auto 3.6 K/mm3 (1.3-6.7); Neutrophils Percent Auto 49.5 % (45.5-73.1); Platelet Count Result 228 k/mm3 (150-375); Red Blood Count 5.31 M/mm3 (4.2-5.4); White Blood Count 7.3 K/mm3 (4.5-10.0)
[2023-10-20 12:20] VITALS: BP 151/64; PULSE 75; RESP 17; O2SAT 98
[2023-10-20 12:33] LABS: Glucose Point of Care 208 mg/dl (65-105)
[2023-10-20 13:25] VITALS: BP 118/68; PULSE 77; RESP 16; O2SAT 95
== END 2023-10-20 13:26 | disposition home or self-care (01) ==
PROVIDERS: Emergency Provider Physician Assistant; PCP Physician Assistant
DX: E11.65 Type 2 diabetes mellitus with hyperglycemia (principal); R25.2 Cramp and spasm; Z79.84 Long term (current) use of oral hypoglycemic drugs; Z79.85 Long-term (current) use of injectable non-insulin antidiabetic drugs
CPT/HCPCS: 36415; 80053; 81003; 81025; 82010; 82948; 83036; 83735; 84100; 85025; 93970; 96361; 96374; 99284; A9270; J1885; J7030